=== PATIENT | female | born 1965 | race Asian ===

== ENCOUNTER 2021-03-06 13:00 | Emergency (ER) | payer OTHER ==
[2021-03-06 13:21] VITALS: TEMP 97.8; BMI 21.2
[2021-03-06] MEDS ORDERED: METOCLOPRAMIDE HCL INJECTION 10 MG/2 ML VIAL IVPB ONE (15:24)
[2021-03-06] MEDS ORDERED: SODIUM CHLORIDE 0.9% 500 ML INFUS.BAG IV ONE (15:25)
[2021-03-06] MEDS ORDERED: ACETAMINOPHEN 1000 MG/100 ML VIAL (NON FORMULARY) IVPB ONE (15:30)
[2021-03-06] MEDS ORDERED: ACETAMINOPHEN INJECTION 100 ML IVPB ONE (15:34)
[2021-03-06] MEDS ORDERED: METOCLOPRAMIDE HCL INJECTION 10 MG/2 ML VIAL ONE (15:35)
[2021-03-06 16:30] LABS: BASO % 0.6 % (0-2.0); EOS % 0.4 % (0-4.5); HEMATOCRIT 40.4 % (32.4-45.2); HEMOGLOBIN 13.3 GM/dL (10.7-15.3); LYMPH % 20.7 % (8-40); MEAN CELL VOLUME 90.9 fl (80-96); MEAN PLT VOLUME 6.7 fl (7.5-11.1); MONO % 5.8 % (3.8-10.2); NEUT % 72.5 % (42.8-82.8); PLATELET COUNT 337 10^3/uL (134-434); RBC 4.44 M/mm3 (3.60-5.2); RDW 12.7 % (11.6-15.6); WHITE BLOOD COUNT 10.5 K/mm3 (4.0-10.0)
[2021-03-06 16:59] LABS: ALBUMIN 2.6 g/dl (3.4-5.0); BLOOD UREA NITROGEN 15.5 mg/dL (7-18); CALCIUM 9.5 mg/dL (8.5-10.1)
[2021-03-06 17:02] LABS: CREATININE 0.6 mg/dL (0.55-1.3)
[2021-03-06 17:04] LABS: BILIRUBIN,TOTAL 0.4 mg/dL (0.2-1)
[2021-03-06 17:39] VITALS: BP 129/74; PULSE 60
== END 2021-03-06 17:39 | disposition home or self-care (01) ==
LOC: JER 13:00
PROC: 3E033NZ Introduction of Analgesics, Hypnotics, Sedatives into Peripheral Vein, Percutaneous Approach (ICD-10-PCS; principal; 2021-03-06)
PROC: 3E033GC Introduction of Other Therapeutic Substance into Peripheral Vein, Percutaneous Approach (ICD-10-PCS; 2021-03-06)
DX: R51.9 Headache, unspecified (principal)
CPT/HCPCS: 36415; 70450-TC; 80053; 85025; 99285-25; J0131

== ENCOUNTER 2023-10-20 11:00 | Day surgery (SDC) | payer OTHER ==
[2023-10-15 14:21] VITALS: BMI 21.2
[2023-10-20 10:11] LABS: BASO % 1.2 % (0-2.0); EOS % 1.3 % (0-4.5); HEMATOCRIT 43.5 % (32.4-45.2); HEMOGLOBIN 14.3 GM/dL (10.7-15.3); LYMPH % 33.3 % (8-40); MCH 29.3 pg (25.7-33.7); MCHC 32.9 g/dl (32.0-36.0); MEAN CELL VOLUME 89.1 fl (80-96); MEAN PLT VOLUME 7.2 fl (7.5-11.1); MONO % 6.8 % (3.8-10.2); NEUT % 57.4 % (42.8-82.8); PLATELET COUNT 318 10^3/uL (134-434); RBC 4.88 M/mm3 (3.60-5.2); RDW 13.4 % (11.6-15.6); WHITE BLOOD COUNT 5.8 K/mm3 (4.0-10.0)
[2023-10-20 10:18] LABS: INR 0.91 (0.83-1.09); PROTHROMBIN TIME (PATIENT) 10.6 SEC (9.7-13.0)
[2023-10-20] MEDS ORDERED: MIDAZOLAM HCL 2 MG/2 ML SINGLE DOSE VIAL ONE (11:02)
[2023-10-20 11:09] LABS: POTASSIUM 4.9 mmol/L (3.5-5.1)
[2023-10-20 11:12] LABS: CALCIUM 9.5 mg/dL (8.5-10.1)
[2023-10-20 11:13] LABS: BLOOD UREA NITROGEN 9.6 mg/dL (7-18)
[2023-10-20 11:16] LABS: CREATININE 0.6 mg/dL (0.55-1.3)
[2023-10-20] MEDS: SODIUM CHLORIDE 500 ML IV ONE (11:55)
[2023-10-20] MEDS: MIDAZOLAM HCL 2 MG/2 ML SINGLE DOSE VIAL IVPUSH ONE (11:58)
[2023-10-20] MEDS: FENTANYL CITRATE/PF 50 MCG/ML VIAL IVPUSH ONE (11:58)
[2023-10-20 12:55] VITALS: RESP 18
[2023-10-20 14:14] VITALS: BP 118/62; PULSE 72; TEMP 98.2
== END 2023-10-20 14:39 | disposition home or self-care (01) ==
LOC: JRADIR 14:39
PROVIDERS: ATTEND Internal Medicine Nephrology
PROC: 0TB03ZX Excision of Right Kidney, Percutaneous Approach, Diagnostic (ICD-10-PCS; principal; 2023-10-20)
DX: M32.14 Glomerular disease in systemic lupus erythematosus (principal)
CPT/HCPCS: 36415; 50200; 77012-TC; 80048; 84703; 85025; 85610; 88300-TC; 88329

== ENCOUNTER 2024-05-02 18:23 | Emergency (ER) | payer OTHER ==
[2024-05-02 18:27] VITALS: BP 125/78; PULSE 65; RESP 18; TEMP 97.8; BMI 22.1
[2024-05-02] MEDS ORDERED: ACETAMINOPHEN 500 MG TABLET (FP) ONE (19:31)
[2024-05-02] MEDS: ACETAMINOPHEN 500 MG TABLET (FP) PO ONE (19:36)
== END 2024-05-02 21:28 | disposition home or self-care (01) ==
LOC: JERFT 18:23 → JER 18:23 → JERFT 21:28
DX: S09.90XA Unspecified injury of head, initial encounter (principal); M79.10 Myalgia, unspecified site; W01.0XXA Fall on same level from slipping, tripping and stumbling without subsequent striking against object, initial encounter; Y99.0 Civilian activity done for income or pay
CPT/HCPCS: 70450-TC; 71260-TC; 72125-TC; 99285-25